=== PATIENT | female | born 1995 | race Two or more races ===

== ENCOUNTER 2022-04-27 09:27 | Outpatient (CLI) | payer OTHER | END 2022-04-27 09:28 | disposition home or self-care (01) | LOC: LAB 09:27 | PROVIDERS: ATTEND Student in an Organized Health Care Education/Training Program | DX: Z34.01 Encounter for supervision of normal first pregnancy, first trimester (principal) ==

== ENCOUNTER 2022-05-12 09:44 | Emergency (ER) | payer OTHER ==
[~2022-05-12] VITALS: Ht 165.1 cm; Wt 97.5 kg
[2022-05-12] MEDS ORDERED: PRENA1 TRUE CO1 EACH (10:16)
== END 2022-05-12 13:25 | disposition home or self-care (01) ==
LOC: ER 09:44
DX: O21.0 Mild hyperemesis gravidarum (principal)